=== PATIENT | female | born 1950 | race Caucasian/White ===

== ENCOUNTER 2020-11-03 09:15 | Emergency (ER) | payer OTHER ==
[~2020-11-03] VITALS: Ht 167.6 cm; Wt 105.9 kg
--- NOTE | 2020-11-03 10:36 | NUR ---
PT BIB SPOUSE VIA POV. PER PT SHE HAS HAD BACK PAIN STARTING LAST NIGHT AND THIS MORNING STARTED HAVING DIFFUSE ABD PAIN. PT STATES SHE WAS [facility]EN [facility]ORN[facility] AND WAS GIVEN ZOFRAN ODT. SENT PT HERE FOR FURTHER EVAL. PT RESTING IN [facility], MONITORING IN PLACE, AT BEDSIDE, NADN AT THIS TIME, DOMI.
[2020-11-03] MEDS ORDERED: MORPHINE SULFATE 4 MG/ML, 1ML ONE (10:59)
[2020-11-03] MEDS ORDERED: ONDANSETRON 2MG/ML, 2ML ONE (10:59)
[2020-11-03] MEDS ORDERED: MORPHINE SULFATE 4 MG/ML, 1ML IVPush PRN (11:00)
[2020-11-03] MEDS ORDERED: ONDANSETRON 2MG/ML, 2ML IVPush ONE (11:00)
[2020-11-03 11:09] LABS: BASOPHILS % (AUTO) 0 % (0-1); EOSINOPHILS % (AUTO) 0 % (1-7); LYMPHOCYTES % (AUTO) 12 % (22-44); MEAN CORPUSCULAR HEMOGLOBIN 28.4 pg (27.0-34.8); MEAN CORPUSCULAR HGB CONC 32.7 g/dL (32.4-35.8); MEAN PLATELET VOLUME 7.5 fL (7.4-10.4); MONOCYTES % (AUTO) 5 % (2-9); NEUTROPHILS % (AUTO) 82 % (42-75); PLATELET COUNT 246 x10^3/uL (130-400); RED BLOOD COUNT 5.03 x10^6/uL (3.82-5.3); RED CELL DISTRIBUTION WIDTH 16.8 % (9.6-15.2)
[2020-11-03 11:19] LABS: ALANINE AMINOTRANSFERASE 46 U/L (12-78); ALBUMIN 3.6 g/dL (3.4-5.0); ANION GAP 6 mmol/L (5-15); CHLORIDE 105 mmol/L (98-107); CREATININE 0.76 mg/dL (0.55-1.02)
[2020-11-03 11:21] LABS: ALKALINE PHOSPHATASE 118 U/L (45-117); BILIRUBIN,TOTAL 0.5 mg/dL (0.2-1.0); TOTAL PROTEIN 7.8 g/dL (6.4-8.2)
[2020-11-03 12:05] LABS: MICROSCOPIC AUTO
[2020-11-03] MEDS ORDERED: OMNIPAQUE 350 MG/ML, 100ML BOTTLE ONE (13:00)
[2020-11-03 13:33] VITALS: BP 174/77
== END 2020-11-03 14:42 | disposition home or self-care (01) ==
LOC: ED 10:03
DX: R82.71 Bacteriuria (principal); R10.84 Generalized abdominal pain; R94.31 Abnormal electrocardiogram [ECG] [EKG]; I48.91 Unspecified atrial fibrillation; Z90.49 Acquired absence of other specified parts of digestive tract; Z90.710 Acquired absence of both cervix and uterus
CPT/HCPCS: 36415; 71045; 74177; 80053; 81001; 83690; 84145; 85025; 87086; 93005; 96374; 96375; 99285; J2270; J2405; Q9967